=== PATIENT | female | born 1955 | race Caucasian/White ===

== ENCOUNTER → 2017-07-26 16:03 | Outpatient (CLI) | payer BC | END | disposition home or self-care (01) | LOC: D.MAMMO 13:00 | DX: Z12.31 Encounter for screening mammogram for malignant neoplasm of breast (principal) ==

== ENCOUNTER → 2018-06-30 13:16 | Outpatient (CLI) | payer BC ==
[2018-06-30 13:42] LABS: BASOPHILS 0.4 % (0-2); EOSINOPHILS 2.9 % (0-7); HEMATOCRIT 38.6 % (36.0-48.0); HEMOGLOBIN 13.2 g/dL (12-16); IMMATURE GRANULOCYTES 0.3 % (0-5); LYMPHOCYTES 28.1 % (15-50); MCH 29.9 pg (26.0-34.0); MCHC 34.2 g/dL (31.0-37.0); MCV 87.5 fL (80.0-100.0); MEAN PLATELET VOLUME 10.1 fL (7.4-10.4); MONOCYTES 6.5 % (2-11); NEUTROPHILS 61.8 % (40-80); PLATELET COUNT 225 10x3/uL (130-400); RBC 4.41 10x6/uL (4.00-5.40); RDW 12.6 % (11.5-14.5); WBC 7.2 10x3/uL (4.8-10.8)
[2018-06-30 14:18] LABS: ALBUMIN 4.2 g/dL (3.4-5.0); ANION GAP 11.2 mmol/L (8-16); BILIRUBIN - TOTAL 0.33 mg/dL (0.2-1.3); CARBON DIOXIDE 31.5 mmol/L (21.0-32.0); CHOL - HDL RATIO 3.6 ratio (2.3-4.1); CREATININE - SERUM 1.2 mg/dL (0.6-1.3); LDL-HDL RATIO 2.3 ratio (1.5-3.5); POTASSIUM - SERUM 3.7 mmol/L (3.5-5.1); PROTEIN - SERUM 7.7 g/dL (6.4-8.2); THYROID STIMULATING HORMONE 1.86 uIU/mL (0.36-3.74)
[2018-06-30 14:53] LABS: ERYTHROCYTE SEDIMENTATION RATE 12 mm/hr (0-30)
== END | disposition home or self-care (01) ==
LOC: D.MAMMO 13:16
PROVIDERS: Family Medicine
DX: Z00.00 Encounter for general adult medical examination without abnormal findings (principal); N95.1 Menopausal and female climacteric states; M79.1 Myalgia; I10 Essential (primary) hypertension

== ENCOUNTER → 2019-07-28 11:07 | Outpatient (CLI) | payer BC ==
[2019-07-28 11:55] LABS: BASOPHILS 0.5 % (0-2); EOSINOPHILS 3.3 % (0-7); HEMATOCRIT 39.5 % (36.0-48.0); HEMOGLOBIN 13.3 g/dL (12-16); IMMATURE GRANULOCYTES 0.3 % (0-5); LYMPHOCYTES 26.7 % (15-50); MCH 30.6 pg (26.0-34.0); MCHC 33.7 g/dL (31.0-37.0); MCV 90.8 fL (80.0-100.0); MONOCYTES 5.9 % (2-11); NEUTROPHILS 63.3 % (40-80); PLATELET COUNT 235 10x3/uL (130-400); RBC 4.35 10x6/uL (4.00-5.40); RDW 12.5 % (11.5-14.5); WBC 5.7 10x3/uL (4.8-10.8)
[2019-07-28 12:08] LABS: ANION GAP 9.3 mmol/L (8-16); BILIRUBIN - TOTAL 0.38 mg/dL (0.2-1.3); CALCIUM 8.9 mg/dL (8.5-10.1); CARBON DIOXIDE 33.6 mmol/L (21.0-32.0); CHOL - HDL RATIO 4.2 ratio (2.3-4.1); CREATININE - SERUM 0.9 mg/dL (0.6-1.3); LDL-HDL RATIO 2.9 ratio (1.5-3.5); POTASSIUM - SERUM 3.9 mmol/L (3.5-5.1); PROTEIN - SERUM 7.7 g/dL (6.4-8.2); THYROID STIMULATING HORMONE 1.6 uIU/mL (0.36-3.74)
== END | disposition home or self-care (01) ==
LOC: D.LAB 11:07
PROVIDERS: ATTEND Family Medicine
DX: I10 Essential (primary) hypertension (principal); M79.10 Myalgia, unspecified site; Z00.00 Encounter for general adult medical examination without abnormal findings

== ENCOUNTER 2019-10-10 07:45 | Day surgery (SDC) | payer BC ==
[2019-10-09 11:24] LABS: HEMATOCRIT 40.3 % (36.0-48.0); HEMOGLOBIN 13.4 g/dL (12-16); MCH 30.3 pg (26.0-34.0); MCHC 33.3 g/dL (31.0-37.0); MCV 91.2 fL (80.0-100.0); MEAN PLATELET VOLUME 9.9 fL (7.4-10.4); RBC 4.42 10x6/uL (4.00-5.40); RDW 12.6 % (11.5-14.5); WBC 7.3 10x3/uL (4.8-10.8)
[2019-10-09 11:29] LABS: ANION GAP 8.9 mmol/L (8-16); CALCIUM 9.4 mg/dL (8.5-10.1); POTASSIUM - SERUM 3.9 mmol/L (3.5-5.1)
[~2019-10-10] VITALS: Ht 154.9 cm; Wt 59.9 kg
[~2019-10-10 07:45] MED LIST: ESTRACE 0.5 MG0.5 MG PO; GABAPENTIN100 MG PO; KLONOPIN0.5 MG PO; TRIAMTERENE-HC1 EAC6 PO; TUMERIC PO; ULTRAM50 MG PO
[2019-10-10 08:27] VITALS: BP 149/68; Ht 154.9 cm; Wt 59.9 kg
--- NOTE | 2019-10-10 14:52 | NUR ---
1450 FL DIET SERVED
== END 2019-10-10 15:50 | disposition home or self-care (01) ==
LOC: D.OPS 07:45 → D.PAN 12:00 → D.OPS 15:50
PROVIDERS: Anesthesiology; ATTEND Podiatrist Foot & Ankle Surgery
DX: M21.612 Bunion of left foot (principal)

== ENCOUNTER 2020-06-13 09:38 | Day surgery (SDC) | payer BC ==
[~2020-06-13] VITALS: Ht 154.9 cm; Wt 55.8 kg
--- NOTE | ~2020-06-13 | OP ---
PATIENT NAME: NGHIA MILES MEDICAL RECORD: [id number] :51 LOCATION:D.OPS ADMISSION DATE: SURGEON: RYAN UP DATE OF OPERATION: 06/13/2020 SURGEON: Ryan Up DPM PREOPERATIVE DIAGNOSES: 1. Hallux abductovalgus, left foot. 2. Hammertoe, second toe, left foot. 3. Hammertoe, third toe, left foot. POSTOPERATIVE DIAGNOSES: 1. Hallux abductovalgus, left foot. 2. Hammertoe, second toe, left foot. 3. Hammertoe, third toe, left foot. PROCEDURES: 1. Chevron bunionectomy, left foot. 2. Arthroplasty, second toe, left foot. 3. Arthroplasty, third toe, left foot. ANESTHESIA: Local with monitored anesthesia care. HEMOSTASIS: Pneumatic ankle tourniquet inflated to 250 mmHg. ESTIMATED BLOOD LOSS: Minimal. MATERIALS: One 2.5 mm [employer] screw. INJECTABLES: A 25 mL of 0.5% bupivacaine plain. INDICATION: The patient has longstanding history of pain associated with bunion and hammertoe deformities of the left foot. She is here today for surgical correction. We have discussed with her the proposed procedures. Risks and benefits were discussed. Complications were reviewed. All questions were answered. She was appropriately consented for the above-mentioned procedures. DESCRIPTION OF PROCEDURE: The patient was brought into the operating room and placed on the operating table in a supine position. A time-out was called with Dr. Up who identified the patient, the surgical site, and surgeries to be performed. Once appropriate anesthesia was obtained, the foot was prepped and draped in the usual aseptic manner. The pneumatic ankle tourniquet was inflated to 250 mmHg around the well-padded left ankle. PROCEDURE NUMBER #1: Chevron bunionectomy, left foot. Attention was directed to the dorsal aspect of the first metatarsophalangeal joint where a 6 cm linear incision was made just medial to the extensor hallucis longus tendon. This incision was carried deep to soft tissue with care being taken to retract all vital neurovascular structures. All bleeders were cauterized along the way. The periosteum was then reflected from the head of the first metatarsal and the base of the proximal phalanx, thus revealing the OPERATIVE REPORT [id number] FINE hypertrophied medial eminence of the first metatarsal head. Internal fixation from previous surgery was also identified and removed in toto. Next, utilizing sharp and blunt dissection, the first intermetatarsal space was sharply entered. The conjoined tendon of the adductor hallucis muscle was identified at the base of proximal phalanx and sharply transected here. Attention was then directed further proximally to the level of the fibular sesamoidal ligament. This structure was identified and sharply transected. Attention was then redirected to the medial aspect of the first metatarsal head. Utilizing a sagittal saw, all hypertrophied bone was removed. Next, utilizing the sagittal saw, a V-shaped osteotomy was created in the head of the first metatarsal. This is a V-shaped osteotomy with the apex oriented distally. This is a zruhmih-ogh-nkyvcsj osteotomy. The capital fragment was translocated laterally and impacted upon the first metatarsal shaft. Next, utilizing manufacture's recommended technique, one 2.5 mm cannulated screw was placed across the osteotomy. All remaining overhanging bone from the medial aspect of the first metatarsal shaft was removed with a bone saw. All sharp bone edges were then smoothed with a rasp and contoured with a rongeur. The surgical site was then irrigated with copious amounts of normal sterile saline via bulb syringe. The periosteum was reapproximated and coapted using 3-0 Vicryl. The subQ was reapproximated and coapted using 3-0 Vicryl. The skin was reapproximated and coapted using 4-0 nylon. PROCEDURE #2: Arthroplasty, second toe, left foot. Attention was directed to the dorsal aspect of the second toe of the left foot where a 3 cm linear incision was made. This incision was carried deep to soft tissue with care being taken to retract all vital neurovascular structures. All bleeders were cauterized along the way. The extensor tendon was then sharply transected from medial to lateral at the level of the proximal interphalangeal joint. All soft tissue attachments were freed from the head of the proximal phalanx, thus exposing the head of this bone. Next, utilizing a double-action bone cutter, the head of the proximal phalanx was removed. The surgical site was then irrigated with copious amounts of normal sterile saline via bulb syringe. The extensor tendon was then reapproximated and coapted using 3-0 Vicryl. SubQ was then reapproximated and coapted using 3-0 Vicryl. The skin was then reapproximated and coapted using 4-0 nylon. PROCEDURE #3: Arthroplasty, third toe, left foot. The exact same procedure that was performed in procedure #2 (arthroplasty, second toe, left foot) was performed on the third toe of the left foot without exception. A dressing consisting of Xeroform, 4 x 4, Kerlix, and Benjamin bandage was applied to the left foot. The pneumatic ankle tourniquet was deflated and capillary refill time was immediate to all digits of the left foot. The patient was discharged home with instructions to ice and elevate the left foot. She was dispensed a boot to further help offload this extremity. There were no complications with this procedure and she will follow up with me next week in the office. She was provided with my cell phone number for any after-hours difficulties. NTS:[id number] Voice Confirmation ID: [id number] DOCUMENT ID: [id number] OPERATIVE REPORT [id number] NGHIA MILES DAVID J CC: [id number] DICTATION DATE: 06/13/20 140 [facility] LEAD: 06/13/202039 [facility] 06/13/20 [facility] [address] [place] [address]
[2020-06-13 09:55] LABS: HEMATOCRIT 41.5 % (36.0-48.0); HEMOGLOBIN 13.7 g/dL (12-16); MEAN PLATELET VOLUME 9.8 fL (7.4-10.4); RBC 4.56 10x6/uL (4.00-5.40); RDW 12.7 % (11.5-14.5); WBC 6.3 10x3/uL (4.8-10.8)
[2020-06-13 10:13] VITALS: BP 115/82; Ht 154.9 cm; Wt 55.8 kg
--- NOTE | 2020-06-13 14:45 | NUR ---
1430 IV REMOVED AND PRESSURE HELD INSTRUCTIONS GIVEN TO PT WITH RX
== END 2020-06-13 14:50 | disposition home or self-care (01) ==
LOC: D.OPS 09:38 → D.PAN 12:00 → D.OPS 12:00
PROVIDERS: Anesthesiology; ATTEND Podiatrist
DX: M20.12 Hallux valgus (acquired), left foot (principal); M20.42 Other hammer toe(s) (acquired), left foot; M79.672 Pain in left foot

== ENCOUNTER → 2020-07-05 12:49 | Outpatient (CLI) | payer BC ==
[2020-06-13 10:13] VITALS: BMI 25.0
[2020-07-05 13:47] LABS: BASOPHILS 0.6 % (0-2); EOSINOPHILS 3.4 % (0-7); IMMATURE GRANULOCYTES 0.4 % (0-5); LYMPHOCYTES 25.3 % (15-50); MCH 30.2 pg (26.0-34.0); MCHC 33.3 g/dL (31.0-37.0); MCV 90.7 fL (80.0-100.0); MEAN PLATELET VOLUME 10.1 fL (7.4-10.4); MONOCYTES 7.8 % (2-11); NEUTROPHILS 62.5 % (40-80); PLATELET COUNT 252 10x3/uL (130-400); RDW 12.7 % (11.5-14.5); WBC 7.1 10x3/uL (4.8-10.8)
[2020-07-05 14:16] LABS: ALBUMIN 3.8 g/dL (3.4-5.0); ANION GAP 6.3 mmol/L (8-16); BILIRUBIN - TOTAL 0.41 mg/dL (0.2-1.3); CALCIUM 9.2 mg/dL (8.5-10.1); CARBON DIOXIDE 35.2 mmol/L (21.0-32.0); CHOL - HDL RATIO 3.7 ratio (2.3-4.1); CREATININE - SERUM 1.1 mg/dL (0.6-1.3); LDL-HDL RATIO 2.4 ratio (1.5-3.5); POTASSIUM - SERUM 3.5 mmol/L (3.5-5.1); PROTEIN - SERUM 7.6 g/dL (6.4-8.2); THYROID STIMULATING HORMONE 2.12 uIU/mL (0.36-3.74)
== END | disposition home or self-care (01) ==
LOC: D.LAB 12:49
PROVIDERS: ATTEND Family Medicine
DX: Z00.00 Encounter for general adult medical examination without abnormal findings (principal); I10 Essential (primary) hypertension